=== PATIENT | male | born 1960 | race Caucasian/White ===

== ENCOUNTER 2017-02-16 00:01 | Emergency (ER) | payer OTHER ==
[~2017-02-16] VITALS: Ht 152.4 cm; Wt 43.5 kg
[~2017-02-16 00:01] MED LIST: MOTRIN800 MG PO
== END 2017-02-16 01:13 | disposition home or self-care (01) ==
LOC: ED 00:01
DX: R04.0 Epistaxis (principal); Z91.040 Latex allergy status; F17.200 Nicotine dependence, unspecified, uncomplicated

== ENCOUNTER 2023-11-25 16:59 | Emergency (ER) | payer OTHER ==
[~2023-11-25] VITALS: Ht 152.4 cm; Wt 39.5 kg
[2023-11-25] MEDS ORDERED: Zestril,Prinivi40 MG PO (17:05)
[2023-11-25] MEDS ORDERED: Lidocaine Hydrochloride 2 ML AMP SC ONE (17:20)
== END 2023-11-25 18:22 | disposition home or self-care (01) ==
LOC: ED 16:59
DX: S11.82XA Laceration with foreign body of other specified part of neck, initial encounter (principal); I10 Essential (primary) hypertension; Z79.899 Other long term (current) drug therapy; Z98.890 Other specified postprocedural states; V27.49XA Other motorcycle driver injured in collision with fixed or stationary object in traffic accident, initial encounter; Y93.I9 Activity, other involving external motion; Y92.89 Other specified places as the place of occurrence of the external cause; Y99.8 Other external cause status

== ENCOUNTER 2023-12-10 13:45 | Emergency (ER) | payer OTHER ==
[~2023-12-10] VITALS: Ht 152.4 cm; Wt 37.6 kg
[~2023-12-10 13:45] MED LIST changes: +Zestril,Prinivi40 MG PO
[2023-12-10] MEDS ORDERED: Acetaminophen/Oxycodone 5 MG/325 MG TABLET PO ONE (14:10)
[2023-12-10] MEDS ORDERED: PREDNISONE20 M1 PO (14:22)
[2023-12-10] MEDS ORDERED: VALTREX1000 MG PO (14:22)
[2023-12-10] MEDS ORDERED: EYE DROPS ADVAN15 ML OP (14:22)
== END 2023-12-10 14:32 | disposition home or self-care (01) ==
LOC: ED 13:45
DX: G51.0 Bell's palsy (principal); I10 Essential (primary) hypertension; J45.909 Unspecified asthma, uncomplicated; Z98.890 Other specified postprocedural states

== ENCOUNTER 2023-12-18 18:17 | Emergency (ER) | payer OTHER ==
[~2023-12-18] VITALS: Ht 152.4 cm; Wt 39.5 kg
[~2023-12-18 18:17] MED LIST changes: +EYE DROPS ADVAN15 ML OP; +PREDNISONE20 M1 PO; +VALTREX1000 MG PO
[2023-12-18 18:51] LABS: HEMATOCRIT 40.8 % (42.0-52.0); MEAN CELL VOLUME 93.4 fl (80.0-94.0); MEAN CORPUSCULAR HGB 32.7 pg (27.0-31.0); MEAN PLATELET VOLUME 8.6 fl (9.6-12.3); PLATELET COUNT AUTOMATED 336 10*3/uL (130-400); RED BLOOD COUNT 4.37 10*6/uL (4.50-5.90); RED CELL DISTRI WIDTH 12.7 % (0-14.5); WHITE BLOOD COUNT 17.9 10*3/uL (4.8-10.8)
[2023-12-18 18:53] LABS: MANUAL DIFF REFLEX YES
[2023-12-18 19:05] LABS: BUN 30 mg/dl (9-23); CHLORIDE 95 mmol/L (98-107); LIPASE 63 U/L (12-53); POTASSIUM 4.2 mmol/L (3.4-5.1)
[2023-12-18 19:19] LABS: PLATELET SUFFICIENCY NORMAL (NORMAL); TOTAL CELLS COUNTED 100 #CELLS
[2023-12-18 19:20] LABS: OVALOCYTES FEW
[2023-12-18] MEDS ORDERED: MIRALAX POWDER17 G1 PO (20:13)
[2023-12-18] MEDS ORDERED: MAGNESIUM CITRATE 296 ML BOT PO ONE (20:15)
== END 2023-12-18 20:23 | disposition home or self-care (01) ==
LOC: ED 18:17
PROVIDERS: Nurse Practitioner Family
DX: K59.00 Constipation, unspecified (principal); D72.829 Elevated white blood cell count, unspecified; I10 Essential (primary) hypertension; J45.909 Unspecified asthma, uncomplicated; Z98.890 Other specified postprocedural states

== ENCOUNTER → 2023-12-30 | Outpatient (CLI) | payer OTHER ==
[~2023-12-30] MED LIST changes: +MIRALAX POWDER17 G1 PO
== END | disposition home or self-care (01) ==
LOC: ZWMC 18:14
PROVIDERS: ATTEND Nurse Practitioner Family
DX: G51.0 Bell's palsy (principal)

== ENCOUNTER → 2024-03-29 | Outpatient (CLI) | payer OTHER | END | disposition home or self-care (01) | LOC: CT 00:59 | PROVIDERS: ATTEND Nurse Practitioner Family | DX: J43.9 Emphysema, unspecified (principal); I35.8 Other nonrheumatic aortic valve disorders; R63.4 Abnormal weight loss; R62.7 Adult failure to thrive; F17.200 Nicotine dependence, unspecified, uncomplicated ==

== ENCOUNTER → 2024-04-03 | Outpatient (CLI) | payer OTHER | END | disposition home or self-care (01) | LOC: ORTHO 03-31 14:37 | PROVIDERS: ATTEND Orthopaedic Surgery | DX: M25.512 Pain in left shoulder (principal) ==

== ENCOUNTER → 2024-04-25 | Day surgery (SDC) | payer OTHER ==
[2024-04-24 11:35] LABS: BUN 19 mg/dl (9-23); CHLORIDE 104 mmol/L (98-107); POTASSIUM 5.4 mmol/L (3.4-5.1)
[~2024-04-25] VITALS: Ht 152.4 cm; Wt 35.4 kg
[~2024-04-25] MED LIST changes: +BUPIVACAINE 0.5% 30 ML IV ONE; +HYDROCODONE-AC1 EAC1 PO; +Ketamine Hydrochloride 500 MG/10 ML VIAL IV ONE; +Lactated Ringer's Solution 500 ML IV ONE; +Lidocaine Hydrochloride 30 ML VIAL ONE; +PROPOFOL 200 MG/20 ML VIAL IV ONE; +ceFAZolin sodium 1 GM VIAL ONE; +fentaNYL CITRATE 100 MCG/2 ML VIAL IV ONE
[2024-04-25 08:20] VITALS: BP 152/91
[2024-04-25 09:47] VITALS: BP 131/71
[2024-04-25 10:02] VITALS: BP 140/85
[2024-04-25 10:14] VITALS: BP 150/90
== END | disposition home or self-care (01) ==
LOC: SDC 04-21 14:45
PROVIDERS: ATTEND Orthopaedic Surgery
DX: M72.0 Palmar fascial fibromatosis [Dupuytren] (principal); I10 Essential (primary) hypertension; J44.9 Chronic obstructive pulmonary disease, unspecified; K21.9 Gastro-esophageal reflux disease without esophagitis; F17.210 Nicotine dependence, cigarettes, uncomplicated; F12.90 Cannabis use, unspecified, uncomplicated; Z96.612 Presence of left artificial shoulder joint; Z98.890 Other specified postprocedural states; Z79.899 Other long term (current) drug therapy; Z82.49 Family history of ischemic heart disease and other diseases of the circulatory system

== ENCOUNTER → 2024-05-17 | Outpatient (CLI) | payer OTHER ==
[~2024-05-17] MED LIST changes: -BUPIVACAINE 0.5% 30 ML IV ONE; -Ketamine Hydrochloride 500 MG/10 ML VIAL IV ONE; -Lactated Ringer's Solution 500 ML IV ONE; -Lidocaine Hydrochloride 30 ML VIAL ONE; -PROPOFOL 200 MG/20 ML VIAL IV ONE; -ceFAZolin sodium 1 GM VIAL ONE; -fentaNYL CITRATE 100 MCG/2 ML VIAL IV ONE
== END | disposition home or self-care (01) ==
LOC: LAB 10:36
PROVIDERS: ATTEND Psychiatry & Neurology Neurology
DX: G51.0 Bell's palsy (principal)

== ENCOUNTER → 2024-05-29 | Outpatient (CLI) | payer OTHER | END | disposition home or self-care (01) | LOC: ORTHO | PROVIDERS: ATTEND Orthopaedic Surgery | DX: S62.92XA Unspecified fracture of left hand, initial encounter for closed fracture (principal); M72.0 Palmar fascial fibromatosis [Dupuytren]; X58.XXXA Exposure to other specified factors, initial encounter; Y93.89 Activity, other specified; Y92.89 Other specified places as the place of occurrence of the external cause; Y99.8 Other external cause status ==

== ENCOUNTER → 2024-08-04 | Outpatient (CLI) | payer OTHER | END | disposition home or self-care (01) | LOC: CT 16:35 | PROVIDERS: ATTEND Psychiatry & Neurology Neurology | DX: G93.89 Other specified disorders of brain (principal); G51.0 Bell's palsy ==

== ENCOUNTER → 2024-09-15 | Outpatient (CLI) | payer OTHER ==
[2024-09-15 18:06] LABS: ALKALINE PHOSPHATASE 52 U/L (46-116); BUN 28 mg/dl (9-23); CHLORIDE 103 mmol/L (98-107); CHOLESTEROL 197 mg/dL (<200); LDL CHOLESTEROL 127 mg/dL (9-159); POTASSIUM 4.8 mmol/L (3.4-5.1); TOTAL PROTEIN 7.5 gm/dL (6.0-8.0); TRIGLYCERIDES 91 mg/dl (<150)
[2024-09-15 18:07] LABS: SGPT/ALT < 7 U/L (5-49)
[2024-09-15 18:08] LABS: VITAMIN D, 25-HYDROXY 81.1 ng/mL (30-100)
== END | disposition home or self-care (01) ==
LOC: LAB 14:09
PROVIDERS: ATTEND Nurse Practitioner Family
DX: I10 Essential (primary) hypertension (principal); E78.00 Pure hypercholesterolemia, unspecified; N28.9 Disorder of kidney and ureter, unspecified; K21.9 Gastro-esophageal reflux disease without esophagitis; E55.9 Vitamin D deficiency, unspecified

== ENCOUNTER 2024-12-31 15:33 | Emergency (ER) | payer OTHER ==
[2024-12-31] MEDS ORDERED: Ondansetron Hydrochloride 4 MG/2 ML VIAL IV ONE (16:00)
[2024-12-31 16:13] LABS: BASO # 0.0 10*3/uL (0.0-0.1); BASO % 0.2 % (0.0-1.0); EOS # 0.1 10*3/uL (0.0-0.4); EOS % 0.7 % (1.0-4.0); MEAN CELL VOLUME 96.4 fl (80.0-94.0); MEAN CORPUSCULAR HGB 31.3 pg (27.0-31.0); MEAN PLATELET VOLUME 9.1 fl (9.6-12.3); MONO # 1.3 10*3/uL (0.1-1.0); MONO % 7.7 % (3.0-9.0); NEUT # 12.3 10*3/uL (2.3-7.9); NEUT % 74.4 % (47.0-73.0); NUCLEATED RED BLOOD CELL 0.0 % (0.0-0.0); NUCLEATED RED BLOOD CELL 0.0 10*3/uL (0.0-0.0); PLATELET COUNT AUTOMATED 256 10*3/uL (130-400); RED CELL DISTRI WIDTH 13.9 % (0-14.5)
[2024-12-31 16:41] LABS: BUN 29 mg/dl (9-23); CPK 107 U/L (34-171)
[2024-12-31 16:43] LABS: SGPT/ALT < 7 U/L (5-49)
[2024-12-31] MEDS ORDERED: SODIUM CHLORIDE 0.9% 500 ML IV ONE (16:55)
[2024-12-31] MEDS ORDERED: PREDNISONE20 M1 PO (18:39)
[2024-12-31] MEDS ORDERED: ZITHROMAX250 MG PO (18:39)
[2024-12-31] MEDS ORDERED: METHOCARBAMOL750 M1 PO (18:39)
== END 2024-12-31 19:00 | disposition home or self-care (01) ==
LOC: ED 15:33
PROVIDERS: Emergency Medicine
DX: M94.0 Chondrocostal junction syndrome [Tietze] (principal); R11.2 Nausea with vomiting, unspecified; D72.829 Elevated white blood cell count, unspecified; I10 Essential (primary) hypertension; N17.9 Acute kidney failure, unspecified; Z98.890 Other specified postprocedural states; Z88.8 Allergy status to other drugs, medicaments and biological substances; Z79.899 Other long term (current) drug therapy

== ENCOUNTER → 2025-05-02 | Outpatient (CLI) | payer OTHER ==
[~2025-05-02] MED LIST changes: +METHOCARBAMOL750 M1 PO; +ZITHROMAX250 MG PO
== END | disposition home or self-care (01) ==
LOC: CT 01:04
PROVIDERS: ATTEND Nurse Practitioner Family
DX: Z12.2 Encounter for screening for malignant neoplasm of respiratory organs (principal); F17.200 Nicotine dependence, unspecified, uncomplicated; R91.1 Solitary pulmonary nodule; I70.0 Atherosclerosis of aorta; M47.819 Spondylosis without myelopathy or radiculopathy, site unspecified